=== PATIENT | male | born 1985 | race Caucasian/White ===

== ENCOUNTER → 2017-12-29 | Outpatient (CLI) | payer OTHER ==
[2017-12-29 12:42] LABS: ABSOLUTE EOSINOPHILS # (AUTO) 0.1 10^3/uL (0.0-0.6); ABSOLUTE LYMPHOCYTES (AUTO) 1.6 10^3/uL (0.5-4.7); ABSOLUTE MONOCYTES (AUTO) 0.4 10^3/uL (0.1-1.4); ABSOLUTE NEUT (AUTO) 2.5 10^3/uL (1.7-8.2); BASOPHILS % (AUTO) 0.3 % (0-2); EOSINOPHILS % (AUTO) 1.2 % (0-6); HEMATOCRIT 49.6 % (37.9-51.0); HEMOGLOBIN 17.1 g/dL (13.5-17.0); LYMPHOCYTES % (AUTO) 35.2 % (13-45); MEAN CORPUSCULAR HEMOGLOBIN 31.2 pg (27.0-33.4); MEAN CORPUSCULAR HGB CONC 34.6 g/dL (32.0-36.0); MEAN CORPUSCULAR VOLUME 90 fl (80-97); PLATELET COUNT 219 10^3/uL (150-450); RED BLOOD COUNT 5.49 10^6/uL (4.35-5.55); RED CELL DISTRIBUTION WIDTH 13.4 % (11.5-14.0); SEGMENTED NEUTROPHILS % (AUTO) 55.3 % (42-78); TOTAL CELLS COUNTED % (AUTO) 100 %; WHITE BLOOD COUNT 4.5 10^3/uL (4.0-10.5)
[2017-12-29 13:18] LABS: ALANINE AMINOTRANSFERASE 22 U/L (21-72); ALBUMIN 4.8 g/dL (3.5-5.0); ALKALINE PHOSPHATASE 70 U/L (38-126); ANION GAP 13 (5-19); ASPARTATE AMINO TRANSFERASE 23 U/L (17-59); BILIRUBIN,DIRECT 0.4 mg/dL (0.0-0.4); BILIRUBIN,TOTAL 2.3 mg/dL (0.2-1.3); BLOOD UREA NITROGEN 14 mg/dL (7-20); CALCIUM 9.9 mg/dL (8.4-10.2); CARBON DIOXIDE 30 mmol/L (22-30); CHLORIDE 99 mmol/L (98-107); CHOLESTEROL 126.28 mg/dL (0-200); GLUCOSE 86 mg/dL (75-110); POTASSIUM 4.3 mmol/L (3.6-5.0); SODIUM 142.1 mmol/L (137-145); TOTAL PROTEIN 7.8 g/dL (6.3-8.2); TRIGLYCERIDES 87 mg/dL (<150)
[2017-12-29 13:29] LABS: DIRECT LDL 75 mg/dL (<100)
== END ==
LOC: OD 11:18
PROVIDERS: ATTEND Internal Medicine
DX: D64.9 Anemia, unspecified (principal); I10 Essential (primary) hypertension; R10.0 Acute abdomen; E03.9 Hypothyroidism, unspecified
CPT/HCPCS: 36415; 80053; 80061; 84443; 85025

== ENCOUNTER → 2018-01-02 | Outpatient (CLI) | payer OTHER ==
--- NOTE | 2018-01-03 07:47 | RADIOLOGY REPORT ---
STRESS TEST REPORT PATIENT NAME: EMANI ALVAREZ ROOM#: DATE OF Ex Test: 01/01/2018 AGE: ORDER#: [id number] MD: Dr Baxter INDICATION: Assessment of chest pains, infrequent occurrence, approximately every 1 week, consisting of chest tightness preceding a burning chest pain. CLINICAL HISTORY: Coronary risk factors include strong family history of premature coronary artery disease (Father had 3 KS's before he at age 37). CURRENT MEDICATIONS: None. REPORT Significant physical findings prior to stress testing showed a blood pressure of 124/75 and a heart rate of 80 BPM, but no ectopy. Auscultation of the heart showed an S4 with no murmur. Resting 12-lead EKG showed NSR at 80 bpm, early transition, IVCD. PROCEDURE: The patient exercised on the standard Jos protocol. He walked a total of 12 minutes and 20 seconds on this protocol reaching peak heart rate of 184 bpm, which is 96% of the maximum predicted heart rate for age. The test was stopped because of chest pains 3/5. The patient described symptoms of chest tightness beginning 11 minutes into exercise at a heart rate of 176 bpm. At peak exercise, his chest tightness became a 3/5 chest pain. This chest pain and tightness totally dissipated 3 minutes post exercise. Exercise ECG showed upsloping ST depression 1-2 mm in leads V4-V6 starting at the 10-minute tracing with a heart rate of 171 bpm, fulfilling criteria of ischemia. No arrhythmias were seen. Blood pressure response was normal, peak blood pressure was 176/84, Double Product was 33K. SUMMARY OF FINDINGS/IMPRESSION: 1.Chest tightness and pain symptoms reproduced with graduated exercise. 2.EKG evidence of ischemia in the form of 1-[address] depression in leads V4-V6 beginning 10 minutes into exercise with a heart rate of 171 bpm, fulfilling criteria of ischemia. 3.Normal blood pressure response to exercise. 4.No arrhythmias induced by exercise. 5.Good exercise tolerance. Good aerobic capacity, positive EKG treadmill stress test. RECOMMENDATIONS: Consider treadmill Cardiolite perfusion imaging to assess his ischemic burden given the EKG evidence and strong F/H of premature CAD and . For time being, Do not exceed exercise to heart rate > 170/min, or exceed chest pain threshold. Report called to Dr Baxter on 01/02/18 ~ 5pm. INTERPRETING PHYSICIAN: DYLAN CHRISTIAN M.D. /: [id number] TT: 1250 ID: [id number] /: [id number] TD: 0900 JOB: [id number] cc:DYLAN CHRISTIAN M.D. > MTDD
== END ==
LOC: RAD 07:13
PROVIDERS: ATTEND Internal Medicine
DX: R07.9 Chest pain, unspecified (principal)
CPT/HCPCS: 93017

== ENCOUNTER → 2018-02-27 | Outpatient (CLI) | payer OTHER ==
--- NOTE | 2018-02-28 10:52 | RADIOLOGY REPORT ---
STRESS TEST REPORT PATIENT NAME: [id number] ROOM#: DATE OF SERVICE: 02/27/2018 AGE: 32Y ORDER#: [id number] REFERRING MD: PROCEDURE PERFORMED: Rest/stress single-isotope Cardiolite SPECT imaging with exercise stress and gated SPECT imaging. INDICATION: For chest pains, abnormal EKG treadmill stress test. CLINICAL HISTORY: This 32-year-old male patient with no known coronary artery disease and has only 1 cardiac risk factor consisting or premature coronary artery disease in his family history, current symptomatology includes chest pains. SUMMARY OF FINDINGS/IMPRESSION: The patient performed treadmill exercise using an accelerated Jos protocol, completing 10 minutes and an estimated workload of 13 METS. The resting heart rate was 80 bpm and increased to 184 bpm. (97%MPARHR) The resting blood pressure was 145/91 and increased to 171/80 at peak exercise. The patient did not develop any symptoms of chest pains during his exercise. The resting ECG showed normal ST segments, NSR of 88 bpm, early precordial transition to V2. At peak exercise he did not have any significant ST depressions. During exercise, junctional depressions were seen in leads V1 to V4. Myocardial perfusion imaging was performed at rest 60 minutes following the injection of 10.50 mCi of Cardiolite. At peak exercise the patient was injected with 34.9 mCi of Cardiolite. Exercise was continued for one more minute. Gated post-stress tomographic imaging was performed 15 - 20 minutes after stress. FINDINGS: The overall quality of the study is good. Left ventricle cavity is noted to be normal in size on both the rest and stress studies. There is no evidence of abnormal transient ischemic dilatation of the left ventricle. The TID ratio was 0.87 and normal. SPECT images showed no evidence of exercise-induced reversible ischemia in any of the LV segments. There is no fixed perfusion defect. Gated SPECT imaging showed normal motion contraction of both LV segments. Left ventricular ejection fraction was calculated to be 56%. IMPRESSION: STRESS MYOCARDIAL PERFUSION IMAGING IS NORMAL. ALTHOUGH THERE WAS JUNCTIONAL ST DEPRESSIONS IN THE ANTERIOR LEADS ON EKG DURING EXERCISE, AT PEAK EXERCISE THERE WAS NO SIGNIFICANT ST DEPRESSION. THERE IS NO EVIDENCE OF ANY EXERCISE INDUCED REVERSIBLE MYOCARDIAL PERFUSION DEFECT AND NO FIXED PERFUSION DEFECT. OVERALL LEFT VENTRICULAR SYSTOLIC FUNCTION WAS NORMAL AT 56% WITH NO REGIONAL WALL MOTION ABNORMALITY. NO PRIOR STUDIES FOR COMPARISON. INTERPRETING PHYSICIAN: DYLAN CHRISTIAN M.D. /: [id number] TT: 1037 ID: [id number] /: [id number] TD: 0956 JOB: [id number] cc:DYLAN CHRISTIAN M.D. > MTDD
== END ==
LOC: RAD 06:50
PROVIDERS: ATTEND Internal Medicine
DX: R07.9 Chest pain, unspecified (principal)
CPT/HCPCS: 93017; 78452; A9500; Q9969